=== PATIENT | male | born 1945 ===

== ENCOUNTER → 2016-12-29 | Outpatient (CLI) | payer OTHER, MEDICARE ==
[~2016-12-29] MED LIST: IOPAMIDOL (ISOVUE 370) 100 ML BTL IV ONE; LIDOCAINE 1% 30 ML SDV ONE; NA BICARBONATE 50 MEQ/50 ML VIAL ONE
== END ==
LOC: FIMAGING 13:06
PROVIDERS: ATTEND Family Medicine
PROC: 0S9 Lower Joints, Drainage (ICD-10-PCS; principal; 2016-12-29)
DX: M79.672 Pain in left foot (principal); M25.675 Stiffness of left foot, not elsewhere classified; M25.475 Effusion, left foot
CPT/HCPCS: 20600; Q9967